=== PATIENT | male | born 1970 | race Caucasian/White ===

== ENCOUNTER 2021-06-15 13:44 | Emergency (ER) | payer MEDICAID ==
[2021-06-15] MEDS ORDERED: diphenhydrAMINE 12.5 MG/5 ML Liquid 120 ML Bottle PO ONE (13:56)
[2021-06-15] MEDS ORDERED: diphenhydrAMINE 25 MG Cap PO ONE (13:59)
[2021-06-15] MEDS ORDERED: Acetaminophen 325 MG Tab PO ONE (14:42)
[2021-06-15] MEDS ORDERED: Acetaminophen 325 MG Tab ONE (14:53)
== END 2021-06-15 15:06 | disposition home or self-care (01) ==
LOC: LB.ED 13:44
DX: R50.9 Fever, unspecified (principal); Z20.822 Contact with and (suspected) exposure to COVID-19; Z88.0 Allergy status to penicillin
CPT/HCPCS: 36415; 80053; 85025; 87635; 99283; A9270; U0002

== ENCOUNTER 2022-06-14 08:17 | Emergency (ER) | payer MEDICAID ==
[2022-06-14] MEDS: Ketorolac 60 MG/2 ML SDV IM ONE ×3 (08:40→09:05)
[2022-06-14] MEDS ORDERED: Cyclobenzaprine 10 MG Tab ONE (08:45)
== END 2022-06-14 08:55 | disposition home or self-care (01) ==
LOC: LB.ED 08:17
DX: S46.912A Strain of unspecified muscle, fascia and tendon at shoulder and upper arm level, left arm, initial encounter (principal); Z88.0 Allergy status to penicillin
CPT/HCPCS: 96372; 99283; A9270-GY; J1885

== ENCOUNTER 2023-08-16 10:25 | Emergency (ER) | payer MEDICAID ==
[2023-08-16] MEDS: Ketorolac 30 MG/ML SDV IM ONE (11:20)
[2023-08-16] MEDS: Ketorolac 30 MG/ML SDV ONE (11:21)
[2023-08-16 11:24] VITALS: BP 114/74; PULSE 55
[2023-08-16] MEDS: Lidocaine 1% 5 ML VIAL INJECT ONE (12:25)
[2023-08-16] MEDS ORDERED: Methocarbamol 500 MG Tab ONE (12:30)
[2023-08-16] MEDS ORDERED: Ketorolac 10 MG Tab ONE (12:30)
[2023-08-17] MEDS: Ketorolac 10 MG Tab ONE (13:32)
== END 2023-08-16 12:49 | disposition home or self-care (01) ==
LOC: LB.ED 10:25
DX: S39.012A Strain of muscle, fascia and tendon of lower back, initial encounter (principal); Z88.0 Allergy status to penicillin; Z79.899 Other long term (current) drug therapy; X50.1XXA Overexertion from prolonged static or awkward postures, initial encounter
CPT/HCPCS: 20552; 96372; 99283; 99283-25; A9270-GY; J1885